=== PATIENT | female | born 1990 | race Two or more races ===

== ENCOUNTER 2024-12-04 20:40 | Emergency (ER) | payer MEDICAID ==
[~2024-12-04] VITALS: Ht 167.6 cm; Wt 80.5 kg
[2024-12-04 23:41] LABS: BILIRUBIN,URINE NEGATIVE (Neg); CLARITY,URINE CLEAR (Clear); COLOR,URINE YELLOW (Yellow); GLUCOSE, URINE NEGATIVE (Neg); KETONES,URINE NEGATIVE (Neg); LEUKOCYTE ESTERASE ,URINE NEGATIVE (Neg); NITRITES, URINE NEGATIVE (Neg); OCCULT BLOOD,URINE NEGATIVE (Neg); PROTEIN,URINE NEGATIVE (Neg); UROBILINOGEN,URINE 0.2 E.U/dL (0.2-1.0)
[2024-12-04 23:49] LABS: UA COLLECTION TYPE CLN CATCH MIDSTREAM
[2024-12-05] MEDS ORDERED: ACET-1025 PO (00:34)
[2024-12-05] MEDS: acetaminophen 325mg tablet PO STA (00:42)
[2024-12-05 00:44] VITALS: BP 128/64; PULSE 99; RESP 18; TEMP 98.6; O2SAT 98
== END 2024-12-05 00:45 | disposition home or self-care (01) ==
LOC: ER 20:42
DX: J11.1 Influenza due to unidentified influenza virus with other respiratory manifestations (principal)
CPT/HCPCS: 36415; 81003; 84702; 87502; 87503; 99283